=== PATIENT | female | born 1940 | race Caucasian/White ===

== ENCOUNTER 2020-10-15 07:50 | Outpatient (RCR) | payer MEDICARE, SELFPAY ==
[2020-10-15] MEDS: ACETAMINOPHEN 325 MG TABLET 650 MG PO (08:07)
[2020-10-15] MEDS: FAMOTIDINE 20 MG TABLET PO (08:07)
[2020-10-15] MEDS: diphenhydrAMINE HCl CAP 25 MG CAPSULE PO (08:07)
[2020-10-15 08:17] VITALS: BP 138/73; PULSE 74; RESP 18; TEMP 36.2; O2SAT 94
[2020-10-15 09:50] VITALS: BP 131/62; PULSE 69; RESP 16; TEMP 36.5; O2SAT 96
== END 2020-10-15 16:00 | disposition home or self-care (01) ==
LOC: AMCINF 07:50
PROVIDERS: Referring Provider Nurse Practitioner Family; Visit Provider Internal Medicine Hematology & Oncology
DX: Z23 Encounter for immunization (principal); U07.1 COVID-19; J44.9 Chronic obstructive pulmonary disease, unspecified
CPT/HCPCS: A9270; J7050; M0243